=== PATIENT | female | born 1930 | race Caucasian/White ===

== ENCOUNTER 2017-07-15 13:56 | Observation (INO) ==
[2017-07-15] MEDS ORDERED: Aspirin 81 MG TAB.CHEW PO ONE (14:01)
--- NOTE | 2017-07-15 14:22 | Emergency Department Note ---
Disposition Clinical Impression: Unstable angina Chest pain Qualifiers: Chest pain type: unspecified Qualified Code(s): R07.9 - Chest pain, unspecified Disposition: Admitted As Inpatient Condition: Good Time of Disposition: 16:02 Chest Pain HPI - General Chief Complaint: ED Chest Pain Stated Complaint: chest pain Time Seen by Provider: 07/15/17 13:58 Source: patient, EMS Limitations: no limitations Vital Signs Reviewed: Yes Nursing Notes Reviewed: Yes - History of Present Illness HPI Narrative: Patient's an 87-year-old female complains of chest pain 2 days of her angina equivalent. Patient's history of ME 2. Patient states pains with substernal radiation to left-sided neck and left arm which seems to pain she had her last ME. Patient states intensity is not as bad. Patient pain 9/10 and ended one hour prior to arrival. Patient states she is currently pain-free. EMS states patient took 2 nitroglycerin at home. Patient has seen Dr. Odell in the past patient states she has not had any recent cardiac workup. Severity scale (1-10): 0 - Related Data Home Medications Medication Instructions Recorded Confirmed Acetaminophen/Diphenhydramine 0.5 each PO HS PRN 07/15/17 07/15/17 [Acetaminophen Pm Caplet] Aspirin 325 mg PO DAILY 07/15/17 07/15/17 Cholecalciferol (Vitamin D3) 2,000 unit PO DAILY 07/15/17 07/15/17 [Vitamin D] Clopidogrel [Plavix] 75 mg PO DAILY 07/15/17 07/15/17 Isosorbide MONOnitrate (24 HR) 60 mg PO DAILY 07/15/17 07/15/17 [Imdur] Melatonin 5 mg PO HS PRN 07/15/17 07/15/17 Metoprolol [Lopressor] 12.5 mg PO BID 07/15/17 07/15/17 Nitroglycerin 0.4 mg PO Q5M PRN 07/15/17 07/15/17 Potassium Chloride [K-Tab ER] 20 meq PO DAILY 07/15/17 07/15/17 Pravastatin Sodium [Pravachol] 40 mg PO HS 07/15/17 07/15/17 Travoprost [Travatan Z] 1 drop OP HS 07/15/17 07/15/17 amLODIPine [Norvasc] 5 mg PO DAILY 07/15/17 07/15/17 hydroCHLOROthiazide 12.5 mg PO Q48H 07/15/17 07/15/17 [Hydrochlorothiazide] Allergies Allergy/AdvReac Type Severity Reaction Status Date / Time No Known Allergies Allergy Verified 07/15/17 14:49 All systems ED: reviewed and negative except as stated. Review of Systems: As Per HPI Constitutional: Denies: fever, weakness Eyes: Denies: vision change ENT ED: Denies: congestion Cardiovascular: Reports: chest pain, dyspnea on exertion. Denies: palpitations Respiratory: Reports: dyspnea. Denies: cough, wheezes Gastrointestinal: Denies: abdominal pain, nausea, vomiting, diarrhea Genitourinary: Denies: urgency, dysuria, frequency Musculoskeletal: Denies: back pain, neck pain Integumentary: Denies: rash, abrasion Neurological: Denies: headache Psychiatric: Denies: anxiety Endocrine: Denies: fatigue Chest Pain PMH - Past Medical History Medical history: Reports: diabetes, hyperlipidemia, hypertension, myocardial infarction Surgical history: Reports: angioplasty/stent, coronary bypass (CABG) Psychiatric history: Reports: no psych history Prior Cardiac Testing/Procedures: Stenting, CABG - Social History Smoking Status: Never smoker Alcohol use: Reports: none Drug use: Reports: none Physical Exam Vital Signs Temperature 98.0 F 07/15/17 13:57 Pulse Rate 60 07/15/17 13:57 Respiratory Rate 18 07/15/17 13:57 Blood Pressure 192/80 07/15/17 13:57 O2 Sat by Pulse Oximetry 90 07/15/17 13:57 Temperature 98.0 F 07/15/17 13:57 Pulse Rate 60 07/15/17 13:57 Respiratory Rate 18 07/15/17 13:57 Blood Pressure 192/80 07/15/17 13:57 O2 Sat by Pulse Oximetry 95 07/15/17 14:01 Oxygen Delivery Oxygen Delivery Nasal Cannula 87-year-old female who is alert and oriented 3 and currently in no acute distress. Patient does not appear toxic at this time. Patient has no conversational dyspnea or diaphoresis. Patient also has no pallor. Vital signs show hypertension 192/80 recheck - General Limitations: no limitations General appearance: alert, in no apparent distress - Head Head exam: atraumatic, normocephalic, normal inspection - Eye Eye exam: Present: normal appearance, PERRL, EOMI - ENT ENT exam: normal exam, normal oropharynx, mucous membranes moist - Neck Neck exam: Present: normal inspection, full ROM, trachea midline. Absent: tenderness - Chest Chest inspection: Present: normal inspection, symmetric chest wall rise - Respiratory Respiratory exam: Present: normal lung sounds bilaterally - Cardiovascular Cardiovascular exam: Present: regular rate, normal rhythm, normal heart sounds - Abdominal Exam Abdominal exam: Present: soft, Non-Tender. Absent: tenderness, distention, guarding, rebound, rigidity - Extremities Exam Extremities exam: Present: normal inspection, full ROM, normal capillary refill. Absent: tenderness, pedal edema - Back Exam Back exam: Present: normal inspection, full ROM. Absent: tenderness, CVA tenderness (R), CVA tenderness (L) - Neurological Exam Neurological exam: Present: alert, oriented X3 Course Vital Signs Temperature 98.0 F 07/15/17 13:57 Pulse Rate 60 07/15/17 13:57 Respiratory Rate 18 07/15/17 13:57 Blood Pressure 192/80 07/15/17 13:57 O2 Sat by Pulse Oximetry 90 07/15/17 13:57 Temperature 98.0 F 07/15/17 13:57 Pulse Rate 57 07/15/17 14:40 Respiratory Rate 20 07/15/17 15:53 Blood Pressure 164/91 07/15/17 15:53 O2 Sat by Pulse Oximetry 95 07/15/17 14:40 Oxygen Delivery Oxygen Delivery Room Air Chest Pain - MDM Narrative Medical decision making narrative: ACS/and stable angina rule out. Also considering diagnoses or PE, CHF, aortic dissection but currently seem less likely at this time during patient's anginal equivalent. Patient currently pain-free. Heart score of 6 No lab abnormalities Urinalysis shows blood and positive leukocyte esterase. Patient started on 1 g of Rocephin for UTI Patient not having any symptoms of dysuria Patient currently not having any pain on reevaluation. Patient be admitted for ACS rule out for repeated troponins and EKGs. Chest x- ray shows no abnormalities, patient received 324 mg of aspirin by mouth. Dr. Marsh the hospitalists has accepted the patient for admission - Lab Data Lab results reviewed: Yes I reviewed the patient's lab results. Lab results narrative: Short CBC 07/15/17 Range/Units 14:17 WBC 9.0 (4.3-11.1) K/mcL Hgb 14.6 (11.5-15.4) g/dL Hct 43.8 (35.3-44.9) % Plt Count 254 (140-400) K/mcL Neutrophils # 5.4 (1.6-8.9) K/mcL BMP 07/15/17 Range/Units 14:17 Sodium 142 (136-145) mEq/L Potassium 3.6 (3.5-4.5) mEq/L Chloride 105 (98-109) mEq/L Carbon Dioxide 32 H (19-29) mEq/L BUN 14 (7-20) mg/dL Creatinine 0.94 (0.57-1.11) mg/dL Glucose 102 H (70-99) mg/dL Calcium 9.6 (8.6-10.8) mg/dL Cardiac Enzymes 07/15/17 Range/Units 14:17 Troponin I 0.01 (0-0.03) ng/mL Urine 07/15/17 Range/Units 14:32 Urine Color Yellow (Yellow) Urine Clarity Cloudy A (Clear) Urine pH 6.5 (5.0-8.0) pH Units Ur Specific [place] 1.020 (1.010-1.025) Urine Protein Trace (Neg-Trace) mg/dL Urine Glucose (UA) Normal (Normal) mg/dL Result diagrams: 07/15/17 14:17 07/15/17 14:17 Lab Results 07/15/17 07/15/17 07/15/17 Range/Units 14:17 14:17 14:17 WBC 9.0 (4.3-11.1) K/mcL RBC 4.45 (3.82-4.97) M/mcL Hgb 14.6 (11.5-15.4) g/dL Hct 43.8 (35.3-44.9) % MCV 98.4 (83.0-100.0) fL MCH 32.8 (28.0-33.3) pg MCHC 33.3 (31.6-35.5) g/dL RDW 12.7 (11.5-14.5) % Plt Count 254 (140-400) K/mcL MPV 12.0 (9.4-12.4) fL Immature Gran % 0.3 (0-4) % Seg Neutrophils % 60.1 % Lymphocytes % 28.8 % Monocytes % 7.9 % Eosinophils % 2.5 % Basophils % 0.4 % Neutrophils # 5.4 (1.6-8.9) K/mcL Lymphocytes # 2.6 (0.6-4.6) K/mcL Monocytes # 0.7 (0.0-1.3) K/mcL Eosinophils # 0.2 (0.0-0.6) K/mcL Basophils # 0.0 (0.0-0.2) K/mcL Sodium 142 (136-145) mEq/L Potassium 3.6 (3.5-4.5) mEq/L Chloride 105 (98-109) mEq/L Carbon Dioxide 32 H (19-29) mEq/L BUN 14 (7-20) mg/dL Creatinine 0.94 (0.57-1.11) mg/dL Est GFR ( Amer) > 60 (> 60) Est GFR (Non-Af Amer) 56 L (> 60) BUN/Creatinine Ratio 15 (6-26) Glucose 102 H (70-99) mg/dL Calculated Osmolality 295 (280-300) Calcium 9.6 (8.6-10.8) mg/dL Troponin I 0.01 (0-0.03) ng/mL Urine Color (Yellow) Urine Clarity (Clear) Urine pH (5.0-8.0) pH Units Ur Specific [place] (1.010-1.025) Urine Protein (Neg-Trace) mg/dL Urine Glucose (UA) (Normal) mg/dL Urine Ketones (Negative) mg/dL Urine Blood (Negative) Urine Nitrite (Negative) Urine Bilirubin (Negative) Urine Urobilinogen (Normal) mg/dL Ur Leukocyte Esterase (Negative) Urine Microscopic RBC (0-3) per hpf Urine Microscopic WBC (0-3) per hpf Ur Squamous Epith Cells (None-Few) per lpf Calcium Oxalate Crystal Urine Bacteria (None-Few) per hpf Hyaline Casts (None-Few) per lpf Ur Culture Indicated? (NO) 07/15/17 Range/Units 14:32 WBC (4.3-11.1) K/mcL RBC (3.82-4.97) M/mcL Hgb (11.5-15.4) g/dL Hct (35.3-44.9) % MCV (83.0-100.0) fL MCH (28.0-33.3) pg MCHC (31.6-35.5) g/dL RDW (11.5-14.5) % Plt Count (140-400) K/mcL MPV (9.4-12.4) fL Immature Gran % (0-4) % Seg Neutrophils % % Lymphocytes % % Monocytes % % Eosinophils % % Basophils % % Neutrophils # (1.6-8.9) K/mcL Lymphocytes # (0.6-4.6) K/mcL Monocytes # (0.0-1.3) K/mcL Eosinophils # (0.0-0.6) K/mcL Basophils # (0.0-0.2) K/mcL Sodium (136-145) mEq/L Potassium (3.5-4.5) mEq/L Chloride (98-109) mEq/L Carbon Dioxide (19-29) mEq/L BUN (7-20) mg/dL Creatinine (0.57-1.11) mg/dL Est GFR ( Amer) (> 60) Est GFR (Non-Af Amer) (> 60) BUN/Creatinine Ratio (6-26) Glucose (70-99) mg/dL Calculated Osmolality (280-300) Calcium (8.6-10.8) mg/dL Troponin I (0-0.03) ng/mL Urine Color Yellow (Yellow) Urine Clarity Cloudy A (Clear) Urine pH 6.5 (5.0-8.0) pH Units Ur Specific [place] 1.020 (1.010-1.025) Urine Protein Trace (Neg-Trace) mg/dL Urine Glucose (UA) Normal (Normal) mg/dL Urine Ketones Negative (Negative) mg/dL Urine Blood Moderate H (Negative) Urine Nitrite Negative (Negative) Urine Bilirubin Negative (Negative) Urine Urobilinogen Normal (Normal) mg/dL Ur Leukocyte Esterase Small H (Negative) Urine Microscopic RBC 0-3 (0-3) per hpf Urine Microscopic WBC 3-5 H (0-3) per hpf Ur Squamous Epith Cells Many H (None-Few) per lpf Calcium Oxalate Crystal Present Urine Bacteria None Seen (None-Few) per hpf Hyaline Casts None Seen (None-Few) per lpf Ur Culture Indicated? YES A (NO) - Radiology Data Radiology results reviewed: Yes I reviewed the patient's radiology results. Chest X-Ray 07/15/17 14:00 IMPRESSION: 1. No active pulmonary disease. D/ / Abhishek Crandall MD / Abhishek Crandall MD Interpreting Provider: Abhishek Crandall MD - EKG Data EKG attestation: Yes I reviewed and interpreted this EKG. EKG results narrative: EKG taken for July 2017 at 1400 hrs. shows a sinus bradycardia. No acute ST elevations or depressions any leads EKG shows mild left ventricular hypertrophy Heart Score - Score History: Moderately Suspicious EKG: Non Specific repolarisation Disturbance Age: Greater than 65 Risk Factors: Equal/Greater than 3 risk factor or history of atherosclerotic disease Troponin: Less than normal limit HEART Score Total: 6 Attestation Statement - Attestation Attestation: I examined this patient and my medical decision-making was reviewed with the Resident Physician. I agree with the documented findings, disposition and treatment plan as described except to the extent set forth below. 87 she will female presents to the ED because of recurrent chest pain. Over the past couple weeks had recurring episodes of substernal chest discomfort which is becoming more frequent and more intense. Mild dyspnea and occasional diaphoresis. She has had similar pain in the past associated with ACS. No fevers or chills. No abdominal pain. No productive cough. Pleasant, elderly female in no apparent distress. Oropharynx clear mucous membranes are moist. Neck is supple. Trachea midline, no JVD. Chest clear to auscultation bilaterally. Extremities without rubs or gallops. Chest wall nontender to palpation. Abdomen soft, nondistended and nontender to palpation. Extremities well- perfused, warm and dry. EKG without any acute abdomen. Initial ED workup was unremarkable. She will be admitted for further workup and evaluation.
[2017-07-15 14:29] LABS: Hematocrit 43.8 % (35.3-44.9); Hemoglobin 14.6 g/dL (11.5-15.4); Immature Granulocytes % 0.3 % (0-4); Lymphocytes % 28.8 %; Mean Corpuscular HGB Conc 33.3 g/dL (31.6-35.5); Mean Corpuscular Hemoglobin 32.8 pg (28.0-33.3); Mean Corpuscular Volume 98.4 fL (83.0-100.0); Monocytes % 7.9 %; Platelet Count 254 K/mcL (140-400); Red Blood Count 4.45 M/mcL (3.82-4.97); Red Cell Distribution Width 12.7 % (11.5-14.5); Segmented Neutrophils % 60.1 %
[2017-07-15 14:30] LABS: Basophils % 0.4 %; Eosinophils # 0.2 K/mcL (0.0-0.6); Eosinophils % 2.5 %; Lymphocytes # 2.6 K/mcL (0.6-4.6); Monocytes # 0.7 K/mcL (0.0-1.3); Neutrophils # 5.4 K/mcL (1.6-8.9)
[2017-07-15 14:39] LABS: BUN/Creatinine Ratio 15 (6-26); Blood Urea Nitrogen 14 mg/dL (7-20); Calcium 9.6 mg/dL (8.6-10.8); Carbon Dioxide 32 mEq/L (19-29); Chloride 105 mEq/L (98-109); Glucose 102 mg/dL (70-99); Osmolality,Calculated 295 (280-300); Potassium 3.6 mEq/L (3.5-4.5); Sodium 142 mEq/L (136-145); eGFR For African Americans > 60 (> 60); eGFR For Non-African Americans 56 (> 60)
[2017-07-15 14:46] LABS: Bilirubin,Urine Negative (Negative); Blood,Urine Moderate (Negative); Clarity,Urine Cloudy (Clear); Color,Urine Yellow (Yellow); Glucose,Urine (UA) Normal (Normal); Ketones,Urine Negative (Negative); Leukocyte Esterase,Urine Small (Negative); Nitrite,Urine Negative (Negative); PH,Urine 6.5 pH Units (5.0-8.0); Protein,Urine Trace mg/dL (Neg-Trace); Urobilinogen,Urine Normal (Normal)
[2017-07-15 14:47] LABS: Bacteria,Urine None Seen per hpf (None-Few); Hyaline Casts,Urine None Seen per lpf (None-Few); RBC,Urine 0-3 per hpf (0-3); Squamous Epithelial Cell,Urine Many per lpf (None-Few)
[2017-07-15 14:56] LABS: Calcium Oxalate Crystals,Urine Present
[2017-07-15] MEDS ORDERED: cefTRIAXone 1,000 MG in Water for inj. (sterile) 10 ML IVP ONE (15:59)
[2017-07-15] MEDS ORDERED: ACETAMINOPHEN PM PO PRN (21:19)
[2017-07-15] MEDS ORDERED: Melatonin 3 MG TABLET PO PRN (21:19)
[2017-07-15] MEDS ORDERED: Nitroglycerin 0.4 MG TAB.SUBL SL PRN (21:19)
[2017-07-15] MEDS ORDERED: Dextrose Gel 15 GM PO PRN ×2 (21:21)
[2017-07-15] MEDS ORDERED: *HR* Morphine 2 MG/ML SYRINGE IVP PRN (21:21)
[2017-07-15] MEDS ORDERED: D5% in Water 1,000 ML IVC PRN (21:21)
[2017-07-15] MEDS ORDERED: *HR* Dextrose 50 % in Water (Syg) 50 ML SYRINGE IVP PRN (21:21)
[2017-07-15] MEDS ORDERED: Naloxone 0.4 MG/ML INJ IVP PRN (21:21)
--- NOTE | 2017-07-15 21:26 | Internal Med History&Physical ---
<Konrad Kennedy J - Last Filed: 07/15/17 21:24> Date of Encounter: 07/15/17 Time of Encounter: 21:24 Assessment and Plan (1) Unstable angina Current visit: Yes Status: Acute Chest pain began approximately 2 days ago, improved with 2 sublingual nitroglycerin tablets she is currently not having any chest pain at this time but Continues to have intermittent chest discomfort. Chest discomfort is describedas substernal without radiation and nonexertional. She has an extensive cardiac history including DC 2, and CABG. Reports that everybody in her family of heart attacks at young age. Initial troponin negative at 0.01. She has not had any recent cardiac workup. Consult cardiology for further recommendations, I feel due to her history and current presentation she may need a left heart cath Continue to trend troponin PRN Morphine and nitro for chest pain NPO after midnight continuous tele, continuous spo2 Continue aspirin, statin and Plavix Echocardiogram (2) UTI (urinary tract infection) Current visit: Yes Status: Acute Urinalysis reveals cloudy urine with moderate blood and small leukocyte esterase. She denies any abdominal pain, severe pain, dysuria, urinary urgency or frequency. However we will continue to treat as UTI this time, ceftriaxone 1 g daily Qualifiers: Urinary tract infection type: acute cystitis Hematuria presence: with hematuria Qualified Code(s): N30.01 - Acute cystitis with hematuria (3) Diabetes Current visit: Yes Status: Acute Start low-dose sliding scale insulin coverage, before meals and at bedtime Accu- Cheks, diabetic diet for now. Nothing by mouth after midnight until cardio sees Qualifiers: Diabetes mellitus type: type 2 Diabetes mellitus complication status: without complication Diabetes mellitus prison insulin use: without manager payment use Qualified Code(s): E11.9 - Type 2 diabetes mellitus without complications (4) HTN (hypertension) Current visit: Yes Status: Acute History of hypertension, blood pressure waxing and waning. His BP anywhere from 190s to 160s today. Continue Norvasc, metoprolol and isosorbide. Start Hydralazine 10 mg IV push recipe sustained greater than 160 Qualifiers: Hypertension type: essential hypertension Qualified Code(s): I10 - Essential (primary) hypertension (5) DVT prophylaxis Current visit: Yes Status: Acute Heparin 5000 units subcutaneous twice a day Internal Medicine - H&P: HPI Chief complaint: Chest pain Admitted From: Home Plans for Post Hospital Care: Home History of present illness: Ms. Connor is a 87 year old female with a PMH of DC 2, DM, HLD, hypertension and CABG. She presents today with 2 day history of substernal chest pain/ pressure without radiation and nonexertional rated as 9/10 before arrival. Upon arrival chest pain has subsided, she reports taking 2 SL nitroglycerin tablets with improvement. Admits to fatigue and chest discomfort last 2 days, denies fever, chills, nausea, vomiting, diaphoresis, shortness of breath. Multiple risk factors including prior DC, diabetes, and she will T and CABG. Troponin negative as were 0.01. Additionally has noted she has her urinalysis is cloudy with leukocyte esterase present. Denies any abdominal pain, dysuria, frequency or urgency. Past Med Surg Social Fam HX - Past Medical History Medical history: diabetes, hyperlipidemia, hypertension, myocardial infarction Psychiatric history: no psych history - Past Surgical History Surgical History: angioplasty/stent, coronary bypass (CABG) - Social History Smoking Status: Never smoker Smokeless Tobacco Status: No Alcohol use: none Drug use: none - Family History Father Living Status: Age at : 40 Hx Family Cardiac Disorders: Yes Internal Medicine - H&P: Meds Acetaminophen/Diphenhydramine [Acetaminophen Pm Caplet] 0.5 each PO HS PRN 07/15 [History] Aspirin 325 mg PO DAILY 07/15/17 [History] Cholecalciferol (Vitamin D3) [Vitamin D] 2,000 unit PO DAILY 07/15/17 [History] Clopidogrel [Plavix] 75 mg PO DAILY 07/15/17 [History] Isosorbide MONOnitrate (24 HR) [Imdur] 60 mg PO DAILY 07/15/17 [History] Melatonin 5 mg PO HS PRN 07/15/17 [History] Metoprolol [Lopressor] 12.5 mg PO BID 07/15/17 [History] Nitroglycerin 0.4 mg PO Q5M PRN 07/15/17 [History] Potassium Chloride [K-Tab ER] 20 meq PO DAILY 07/15/17 [History] Pravastatin Sodium [Pravachol] 40 mg PO HS 07/15/17 [History] Travoprost [Travatan Z] 1 drop OP HS 07/15/17 [History] amLODIPine [Norvasc] 5 mg PO DAILY 07/15/17 [History] hydroCHLOROthiazide [Hydrochlorothiazide] 12.5 mg PO Q48H 07/15/17 [History] 3 Allergy/AdvReac Type Severity Reaction Status Date / Time No Known Allergies Allergy Verified 07/15/17 14:49 All Systems PM: A 10-system review of systems was performed and is negative for pertinent findings except as documented above in the HPI. - Constitutional Constitutional: no chills, no fever(s), no night sweats - EENT Eyes: no change in vision, no discharge, no pain, no photophobia Ears: no ear discharge, no ear pain, no tinnitus Nose, mouth and throat: no dysphagia, no nasal discharge, no neck pain, no sore throat - Cardiovascular Cardiovascular ROS IM: chest pain, no diaphoresis, no dyspnea, no edema, no irregular heart rhythm, no lightheadedness, no orthopnea, no palpitations, no paroxysmal nocturnal dyspnea, no syncope - Respiratory Respiratory: no cough, no dyspnea, no wheezing, no excessive phlegm production - Gastrointestinal Gastrointestinal: no abdominal pain, no diarrhea, no hematemesis, no hematochezia, no melena, no nausea, no vomiting - Genitourinary Genitourinary: no change in urinary stream, no dysuria, no flank pain, no hematuria - Musculoskeletal Musculoskeletal ROS IM: no numbness, no tingling - Integumentary Integumentary IM: no rash, no unusual bruising - Neurological Neurological ROS: no confusion, no convulsions, no focal weakness, no numbness, no tingling, no tremor(s) - Hematologic/Lymphatic Hematologic/Lymphatic: no easy bruising - Constitutional Vitals: Temp Pulse Resp BP Pulse Ox 98.2 F 64 15 165/67 93 07/15/17 18:52 07/15/17 18:52 07/15/17 18:52 07/15/17 18:52 07/15/17 18:52 General appearance: Present: cooperative, A&O X 3, no acute distress, answers questions appropriately - Head Head exam: Present: atraumatic, normocephalic - Eye Eye exam: Present: PERRL, conjuntiva pink, sclera anicteric Pupils: Present: PERRL - Neck Neck exam general surgery: Present: supple, trachea midline. Absent: lymphadenopathy - Respiratory Respiratory exam: Present: CTAB. Absent: accessory muscle use, rales, rhonchi, wheezes - Cardiovascular Cardiovascular exam: Present: RRR, +S1, +S2. Absent: diastolic murmur, gallop, rubs, systolic murmur - GI/Abdominal GI/Abdominal exam: Present: normal bowel sounds, soft, no peritoneal signs. Absent: distended, tenderness - Extremities Exam Extremities exam: Present: warm, radial pulses palpable and symmetrical. Absent : calf tenderness, cyanotic, pedal edema - Neurological Exam Neurological exam: Present: CN II-XII intact, oriented X3, no focal deficits. Absent: pronater drift, facial droop, speech deficit - Skin Skin exam: Present: dry, intact Internal Med - H&P Results - Labs CBC & Chem 7: 07/15/17 14:17 07/15/17 14:17 - EKG Data -: EKG Interpreted by Myself EKG shows normal: sinus rhythm Rate: bradycardia - EKG Data Prior EKG available for review: yes When compared to previous EKG: there is no significant change - Diagnostic Studies Chest x-ray Status: image reviewed by me Additional comments: No acute pulmonary process <Gregory Zavala - Last Filed: 07/16/17 02:30> Date of Encounter: 07/15/17 Time of Encounter: 23:05 - Constitutional Vitals: Temp Pulse Resp BP Pulse Ox 98.4 F 68 16 171/68 93 07/15/17 23:23 07/15/17 23:23 07/15/17 23:23 07/15/17 23:23 07/15/17 23:23 General appearance: Present: A&O X 3, no acute distress - Eye Eye exam: Present: PERRL. Absent: scleral icterus - Neck Neck exam general surgery: Present: supple. Absent: tenderness - Expanded Neck Exam Neck exam: Absent: carotid bruit - Respiratory Respiratory exam: Present: CTAB. Absent: rales, rhonchi, wheezes - Cardiovascular Cardiovascular exam: Present: RRR, +S1, +S2. Absent: diastolic murmur, systolic murmur - GI/Abdominal GI/Abdominal exam: Present: soft. Absent: tenderness Internal Med - H&P Results - Labs CBC & Chem 7: 07/15/17 14:17 07/15/17 14:17 Labs: Cardiac Enzymes 07/15/17 Range/Units 21:50 Troponin I 0.02 (0-0.03) ng/mL - EKG Data -: EKG Interpreted by Myself - EKG Data EKG comments: 07/16/17 02:26 Sinus bradycardia; no acute ST-T changes - Diagnostic Studies Chest x-ray Status: image reviewed by me (negative) - Attending Attestation I discussed the patient MODOC, PMH, ROS, lab data, and exam findings with Konrad Kennedy CNP. I then saw and examined patient independently as well. Patient gives a concerning history for angina with chest tightness and dyspnea, especially with exertion. Today she had CP relieved by 2 SL NTG. Currently, she is chest pain free. She has known CAD and will need cardiology consultation with possible LHC. However, I'll defer that to cardiology. Other than my comments above and noted exam findings, I agree with Konrad's assessment and plan.
[2017-07-15] MEDS ORDERED: hydroCHLOROthiazide 25 MG TABLET PO SCH (21:30)
[2017-07-16 04:06] LABS: Basophils # 0.1 K/mcL (0.0-0.2); Basophils % 0.6 %; Eosinophils # 0.3 K/mcL (0.0-0.6); Eosinophils % 2.8 %; Hematocrit 43.5 % (35.3-44.9); Hemoglobin 14.7 g/dL (11.5-15.4); Immature Granulocytes % 0.2 % (0-4); Lymphocytes % 32.7 %; Mean Corpuscular HGB Conc 33.8 g/dL (31.6-35.5); Mean Corpuscular Hemoglobin 32.8 pg (28.0-33.3); Mean Corpuscular Volume 97.1 fL (83.0-100.0); Monocytes # 0.7 K/mcL (0.0-1.3); Monocytes % 7.5 %; Neutrophils # 5.1 K/mcL (1.6-8.9); Platelet Count 247 K/mcL (140-400); Red Blood Count 4.48 M/mcL (3.82-4.97); Red Cell Distribution Width 12.7 % (11.5-14.5); Segmented Neutrophils % 56.2 %
[2017-07-16 04:13] LABS: BUN/Creatinine Ratio 15 (6-26); Blood Urea Nitrogen 12 mg/dL (7-20); Calcium 9.3 mg/dL (8.6-10.8); Carbon Dioxide 26 mEq/L (19-29); Chloride 104 mEq/L (98-109); Glucose 87 mg/dL (70-99); Osmolality,Calculated 295 (280-300); Sodium 143 mEq/L (136-145); eGFR For African Americans > 60 (> 60); eGFR For Non-African Americans > 60 (> 60)
[2017-07-16] MEDS: *HR* Heparin 5,000 UNIT/ML VIAL SQ SCH ×2 (05:38→18:39)
[2017-07-16] MEDS ORDERED: Isosorbide MONOnitrate (24 HR) 60 MG TAB.ER.24H PO SCH (09:00)
[2017-07-16] MEDS ORDERED: cefTRIAXone 1,000 MG in Water for inj. (sterile) 10 ML IVP SCH (09:00)
[2017-07-16] MEDS: Aspirin 325 MG TABLET PO SCH (10:26)
[2017-07-16] MEDS: Cholecalciferol (D-3) 1,000 UNIT TABLET PO SCH (10:26)
[2017-07-16] MEDS: Insulin LISPRO 300 UNITS/3 ML VIAL SQ SCH ×2 (10:39→12:41)
[2017-07-16] MEDS: amLODIPine 5 MG TABLET PO SCH ×2 (10:41→11:49)
--- NOTE | 2017-07-16 12:12 | Cardiology Consult Note ---
<Alan Pugh - Last Filed: 07/16/17 12:10> Date of Encounter: 07/16/17 Time of Encounter: 11:50 Assessment and Plan (1) Chest pain Current Visit: Yes Status: Acute Chest pain is reproducible. C/o pain with echocardiogram probe. Troponin negative x3. EKG with no acute finding. TTE shows EF 60-65%. EF improved from 2014, was 40-45%. No significant valvular disfunction. Last [facility] in 2013 showed patent 2/2 bypass grafts. I discussed stress test vs. medical management. She prefers medical management. Increase imdur as tolerated and add Ranexa. We will coordinate out-pt cardiology f/u in 2-3 weeks. Qualifiers: Chest pain type: intercostal pain Qualified Code(s): R07.82 - Intercostal pain (2) CAD (coronary artery disease) Current Visit: Yes Status: Acute H/o 2V CABG. Last LHC in 2013 showed 2/2 patent bypass grafts. 40% stenosis in the distal LEWIS graft. SVG to RPDA is patent. There was a 60% mid circumflex stenosis. Continue asa, statin, and bb. Qualifiers: Coronary Disease-Associated Artery/Lesion type: bypass graft [place] vs. transplanted heart: [place] heart Associated angina: with other forms of angina Qualified Code(s): I25.708 - Atherosclerosis of coronary artery bypass graft(s), unspecified, with other forms of angina pectoris Discussion w patient/family: The assessment and plan as outlined above was discussed with the patient and/or family members who expressed understanding and agreement. All questions were answered. Thank you for involving us in the care of your patient. Please call with any questions. History of Present Illness Consult date: 07/16/17 Requesting physician: Sherie Hughes Consult reason: Chest pain Chief complaint: Chest pain History of present illness: Ms. Connor is a 87 year old female with a history of 2V CABG, HTN, HLD, and DM type II who presented with chest pain starting two days ago. She c/o left sided chest pressure occuring at rest. Her pain improved with SL NTG and baby ASA. She denies associated symptoms. Denies SOB or palpitations. Denies orthopnea, PND, or edema. Currently continues to have left chest pressure. Cardiac work-up included troponin that are negative x3. EKG shows SR with no acute ST changes. Last [facility] in 2013 showed patent bypass grafts. She is a DNRCCA. She does not want any invasive procedures. Cardiology consulted for medical management recommendations. Past Med Surg Social Fam HX - Past Medical History Medical history: diabetes, hyperlipidemia, hypertension, myocardial infarction Psychiatric history: no psych history - Past Surgical History Surgical History: angioplasty/stent, coronary bypass (CABG) - Social History Smoking Status: Never smoker Smokeless Tobacco Status: No Alcohol use: none Drug use: none - Family History Father Living Status: Age at : 40 Hx Family Cardiac Disorders: Yes Medications and Allergies Acetaminophen/Diphenhydramine [Acetaminophen Pm Caplet] 0.5 each PO HS PRN 07/15 [History] Aspirin 325 mg PO DAILY 07/15/17 [History] Cholecalciferol (Vitamin D3) [Vitamin D] 2,000 unit PO DAILY 07/15/17 [History] Clopidogrel [Plavix] 75 mg PO DAILY 07/15/17 [History] Isosorbide MONOnitrate (24 HR) [Imdur] 60 mg PO DAILY 07/15/17 [History] Melatonin 5 mg PO HS PRN 07/15/17 [History] Metoprolol [Lopressor] 12.5 mg PO BID 07/15/17 [History] Nitroglycerin 0.4 mg PO Q5M PRN 07/15/17 [History] Potassium Chloride [K-Tab ER] 20 meq PO DAILY 07/15/17 [History] Pravastatin Sodium [Pravachol] 40 mg PO HS 07/15/17 [History] Travoprost [Travatan Z] 1 drop OP HS 07/15/17 [History] amLODIPine [Norvasc] 5 mg PO DAILY 07/15/17 [History] hydroCHLOROthiazide [Hydrochlorothiazide] 12.5 mg PO Q48H 07/15/17 [History] 3 Allergy/AdvReac Type Severity Reaction Status Date / Time No Known Allergies Allergy Verified 07/15/17 14:49 All Systems Review: A 10-system review of systems was performed and is negative for pertinent findings except as documented above in the HPI. Physical Examination Vital Signs, Last 4 Hours Temp Pulse Resp BP Pulse Ox 07/16/17 11:21 98.7 F 75 14 176/69 94 General: Conversant, No Apparent Distress, Other (Frail elderly female) HEENT: Atraumatic, Normocephaly, Mucus Membranes Moist Neck: No JVD, Normal carotid pulses Cardiac: Reg Rate and Rhythm, Normal S1 and S2, No Murmur Lungs: Normal Breath Sounds, No Wheeze, Rales, Rhonchi Neuro: Alert and responsive, No focal deficits noted Abdomen: Soft, Non-Tender Skin: No rashes noted on visualized skin Musculoskeletal: Other (Reproducible chest wall pain) Extremities: No Clubbing, No Cyanosis, No Edema, Normal Pulses Results 07/16/17 03:27 07/16/17 03:27 Lab Results 07/15/17 07/16/17 07/16/17 21:50 03:27 03:27 WBC 9.1 Hgb 14.7 Hct 43.5 Plt Count 247 Sodium Potassium Chloride Carbon Dioxide BUN Creatinine Glucose Calcium Troponin I 0.02 0.02 07/16/17 07/16/17 03:27 10:48 WBC Hgb Hct Plt Count Sodium 143 Potassium 3.0 L Chloride 104 Carbon Dioxide 26 BUN 12 Creatinine 0.80 Glucose 87 Calcium 9.3 Troponin I 0.02 - Imaging and Cardiology Echo: report reviewed Cardiac cath: report reviewed - EKG Interpretation EKG results cardiology: personally reviewed Consult Discharge Plan - Plan Referrals: Daron Maria DO [Primary Care Provider] - 07/23/17 11:30 am <Anna Marie Conde - Last Filed: 07/16/17 13:20> Date of Encounter: 07/16/17 - Attending Attestation I have personally performed a face to face evaluation on this patient. I have reviewed and agree with the care plan. History and Exam by me shows: 87 YOF with h/o CABG and recent [facility] 2013 reveals patent grafts and non obstructive CAD in the CIRC. Atypical CP this admission with EF 65% improved from previous. Negative CE x 3. Patient refuses any cardiac procedures at this time. Agree with imyovani and macy. Assessment and Plan Discussion w patient/family: The assessment and plan as outlined above was discussed with the patient and/or family members who expressed understanding and agreement. All questions were answered. Thank you for involving us in the care of your patient. Please call with any questions. History of Present Illness History of present illness: Ms. Connor is a 87 year old female All Systems Review: A 10-system review of systems was performed and is negative for pertinent findings except as documented above in the HPI. Physical Examination Vital Signs, Last 4 Hours Temp Pulse Resp BP Pulse Ox 07/16/17 11:21 98.7 F 75 14 176/69 94 Results 07/16/17 03:27 07/16/17 03:27 Lab Results 07/15/17 07/16/17 07/16/17 21:50 03:27 03:27 WBC 9.1 Hgb 14.7 Hct 43.5 Plt Count 247 Sodium Potassium Chloride Carbon Dioxide BUN Creatinine Glucose Calcium Troponin I 0.02 0.02 07/16/17 07/16/17 03:27 10:48 WBC Hgb Hct Plt Count Sodium 143 Potassium 3.0 L Chloride 104 Carbon Dioxide 26 BUN 12 Creatinine 0.80 Glucose 87 Calcium 9.3 Troponin I 0.02
[2017-07-16] MEDS: Isosorbide MONOnitrate (24 HR) 30 MG TAB.ER.24H PO SCH (14:07)
[2017-07-16] MEDS: Ranolazine 500 MG TAB.ER.12H PO SCH ×2 (14:07→20:38)
--- NOTE | 2017-07-16 17:15 | Discharge Summary ---
Date of Encounter: 07/16/17 Time of Encounter: 14:50 - Discharge Diagnosis (1) Chest pain Priority: Primary Status: Acute Comments: Patient presented to the emergency department on admission for 2 day history of chest pain. Left-sided chest pressure occurring at rest. It was relieved with sublingual nitroglycerin and baby aspirin. She denies any shortness of breath, palpitations, nausea, vomiting, diaphoresis. She denies any peripheral edema. As of exam this evening,pt has no chest pain. She denies SOB, dizziness, headache, n/v/d. Echo revealed LVEF of 60-65%, asymmetric hypertrophy of the basal septum, mild LVDD, no significant valvular dysfunction. EF has improved since prior report in September,. Pt was evaluated by cardiology today and will be medically managed. She is a DNR /DNI and does not want LHC or treatment. Cardiology increased Imdur and added Ranexa, will monitor pt overnight for side effects and effectiveness. Continue telemetry Treat chest pain with NTG, morphine prn Pt will follow up with cardiology in the clinic. Qualifiers: Chest pain type: intercostal pain Qualified Code(s): R07.82 - Intercostal pain (2) UTI (urinary tract infection) Priority: Secondary Status: Acute Comments: Patient denies any urinary symptoms, this is an incidental finding. Urine in the emergency department was cloudy, moderate amount of blood, small amount leukocyte esterase, no bacteria, culture is indicated and pending. Final urine culture resulted 07/16/17, negative for any significant growth. Rocephin has been stopped. Qualifiers: Urinary tract infection type: acute cystitis Hematuria presence: with hematuria Qualified Code(s): N30.01 - Acute cystitis with hematuria (3) Diabetes Priority: Secondary Status: Chronic Comments: Continue SSI, accuchecks achs, and diabetic diet. 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 Continue home medications. Imdur has been increased and Ranexa has been added. Qualifiers: Coronary Disease-Associated Artery/Lesion type: bypass graft [place] vs. transplanted heart: [place] heart Associated angina: with other forms of angina Qualified Code(s): I25.708 - Atherosclerosis of coronary artery bypass graft(s), unspecified, with other forms of angina pectoris (6) DVT prophylaxis Priority: Secondary Status: Acute Comments: Heparin SQ BID - Discharge Medications Prescriptions: Isosorbide MONOnitrate (24 HR) [Imdur] 90 mg PO DAILY #30 tab.er.24h Ranolazine [Ranexa] 500 mg PO BID #60 tab.er.12h Home Medications: Acetaminophen/Diphenhydramine [Acetaminophen Pm Caplet] 0.5 each PO HS PRN 07/15 [History] Aspirin 325 mg PO DAILY 07/15/17 [History] Cholecalciferol (Vitamin D3) [Vitamin D3] 2,000 unit PO DAILY 07/15/17 [History] Clopidogrel [Plavix] 75 mg PO DAILY 07/15/17 [History] Melatonin 5 mg PO HS PRN 07/15/17 [History] Metoprolol [Lopressor] 12.5 mg PO BID 07/15/17 [History] Nitroglycerin 0.4 mg PO Q5M PRN 07/15/17 [History] Potassium Chloride [K-Tab ER] 20 meq PO DAILY 07/15/17 [History] Pravastatin Sodium [Pravachol] 40 mg PO HS 07/15/17 [History] Travoprost [Travatan Z] 1 drop OP HS 07/15/17 [History] amLODIPine [Norvasc] 5 mg PO DAILY 07/15/17 [History] hydroCHLOROthiazide [Hydrochlorothiazide] 12.5 mg PO Q48H 07/15/17 [History] Isosorbide MONOnitrate (24 HR) [Imdur] 90 mg PO DAILY #30 tab.er.24h 07/16/17 [ Rx] Ranolazine [Ranexa] 500 mg PO BID #60 tab.er.12h 07/16/17 [Rx] Allergies/Adverse Reactions: 3 Allergy/AdvReac Type Severity Reaction Status Date / Time No Known Allergies Allergy Verified 07/15/17 14:49 Procedures/tests Complete & Pending: Procedures Performed prior 72 hours Category Date Time Status EV echocardiogram Routine Y 07/16/17 21:18 Completed Date of admission: 07/15/17 15:23 Primary care physician: Daron Maria DO Consults: 07/15/17 21:18 Consult to Cardiology [CONS] Routine Comment: Consulting Provider: Cardiology Pamela Reason for Consult: Substernal CP/pressure; h/o ND , DM, CABG. Further recommendations stress vs C need Call Completed: No Discharging clinician: Sherie Hughes Anticipated date of discharge: 07/16/17 - Patient Status Disposition: Home, Self-Care Condition: Good Functional capacity at discharge: independent ambulation Overall status at discharge: patient is back to baseline - Discharge Instructions Follow Up With: Daron Maria DO [Primary Care Provider] - 07/23/17 11:30 am Additional Instructions: Please follow-up with her primary care provider in the next 7-10 days for recheck. Please follow-up with cardiology as scheduled. Start your new medications tomorrow. Return to the emergency department as needed for any other problems or concerns , or if symptoms return or worsen. Resume your normal home medications and diet as tolerated after discharge. - Diet and Activity Activity: increase activity as tolerated Diet: advance to your usual diet Interval History: Please see assessment and plan for hospital course. Hospital course: Ms. Connor is a 87 year old female - Time Spent with Patient Total time spent providing and/or coordinating discharge services: Less than 30 minutes - Constitutional Vitals: Temp Pulse Resp BP Pulse Ox 97.8 F 90 89 124/73 90 07/16/17 16:30 07/16/17 16:30 07/16/17 16:30 07/16/17 16:30 07/16/17 16:30 General appearance: Present: cooperative, A&O X 3, pleasant, no acute distress, answers questions appropriately. Absent: mild distress - Head Head exam: Present: atraumatic, normal inspection, normocephalic - Eye Eye exam: Present: normal appearance, conjuntiva pink, sclera anicteric - Neck Neck exam general surgery: Present: supple, trachea midline. Absent: lymphadenopathy, tenderness - Respiratory Respiratory exam: Present: CTAB. Absent: accessory muscle use, decreased breath sounds, rales, respiratory distress, rhonchi, wheezes - Cardiovascular Cardiovascular exam: Present: RRR, +S1, +S2. Absent: diastolic murmur, gallop, rubs, systolic murmur - GI/Abdominal GI/Abdominal exam: Present: normal bowel sounds, soft, no peritoneal signs. Absent: distended, hepatomegaly, tenderness - Extremities Exam Extremities exam: Present: normal capillary refill, warm, radial pulses palpable and symmetrical. Absent: calf tenderness, cyanotic, pedal edema, tenderness - Neurological Exam Neurological exam: Present: alert, oriented X3, no focal deficits. Absent: altered, facial droop, speech deficit - Skin Skin exam: Present: dry, intact, normal color, warm. Absent: rash
[2017-07-16] MEDS ORDERED: Latanoprost 2.5 ML BOTTLE BOTH EYES SCH (21:00)
[2017-07-16] MEDS ORDERED: Insulin LISPRO 300 UNITS/3 ML VIAL SQ SCH (21:00)
[2017-07-17] MEDS: *HR* Heparin 5,000 UNIT/ML VIAL SQ SCH (05:51)
[2017-07-17 07:34] VITALS: BP 151/73
[2017-07-17] MEDS: Aspirin 325 MG TABLET PO SCH (09:02)
[2017-07-17] MEDS: Isosorbide MONOnitrate (24 HR) 30 MG TAB.ER.24H PO SCH (09:02)
[2017-07-17] MEDS: amLODIPine 5 MG TABLET PO SCH (09:02)
[2017-07-17] MEDS: Ranolazine 500 MG TAB.ER.12H PO SCH (09:03)
[2017-07-17] MEDS: Cholecalciferol (D-3) 1,000 UNIT TABLET PO SCH (09:03)
--- NOTE | 2017-07-17 10:23 | Internal Med Progress Note ---
Date of Encounter: 07/17/17 Time of Encounter: 09:45 - Assessment and plan (1) Chest pain Current Visit: Yes Status: Acute Assessment and plan: Patient presented to the emergency department on admission for 2 day history of chest pain. Left-sided chest pressure occurring at rest. It was relieved with sublingual nitroglycerin and baby aspirin. She denies any shortness of breath, palpitations, nausea, vomiting, diaphoresis. She denies any peripheral edema. As of exam this morning,pt has no chest pain. She denies SOB, dizziness, headache, n/v/d. She denies palpitations, or chest pressure. Echo revealed LVEF of 60-65%, asymmetric hypertrophy of the basal septum, mild LVDD, no significant valvular dysfunction. EF has improved since prior report in September,. Pt was evaluated by cardiology today and will be medically managed. She is a DNR /DNI and does not want LHC or treatment. Cardiology increased Imdur and added Ranexa. Prescriptions sent to pharmacy. Pt sanam well overnight without obvious side effects. Pt to follow up with cardiology in the clinic. Qualifiers: Chest pain type: intercostal pain Qualified Code(s): R07.82 - Intercostal pain (2) UTI (urinary tract infection) Current Visit: Yes Status: Acute Assessment and plan: Patient denies any urinary symptoms, this is an incidental finding. Urine in the emergency department was cloudy, moderate amount of blood, small amount leukocyte esterase, no bacteria, culture is indicated and pending. Final urine culture resulted 07/16/17, negative for any significant growth. Rocephin has been stopped. Qualifiers: Urinary tract infection type: acute cystitis Hematuria presence: with hematuria Qualified Code(s): N30.01 - Acute cystitis with hematuria (3) Diabetes Current Visit: Yes Status: Chronic Assessment and plan: Continue home medications and accucheck regimen. Maintain diabetic diet at home. Qualifiers: Diabetes mellitus type: type 2 Diabetes mellitus complication status: without complication Diabetes mellitus vermin exterminator insulin use: without jail use Qualified Code(s): E11.9 - Type 2 diabetes mellitus without complications (4) HTN (hypertension) Current Visit: Yes Status: Acute Assessment and plan: Chronic. Well controlled. Continue home medications. Qualifiers: Hypertension type: essential hypertension Qualified Code(s): I10 - Essential (primary) hypertension (5) CAD (coronary artery disease) Current Visit: Yes Status: Chronic Assessment and plan: Chronic. Continue home medications. Imdur has been increased and Ranexa has been added. Pt tolerated medications well. Follow up with cardiology in the office as scheduled. Qualifiers: Coronary Disease-Associated Artery/Lesion type: bypass graft [place] vs. transplanted heart: [place] heart Associated angina: with other forms of angina Qualified Code(s): I25.708 - Atherosclerosis of coronary artery bypass graft(s), unspecified, with other forms of angina pectoris (6) DVT prophylaxis Current Visit: Yes Status: Acute Assessment and plan: Heparin SQ daily BID, pt was also ambulatory. - Time Spent With Patient less than 15 minutes - Subjective Interval history: Pt was seen and examined at bedside at 0945. Daughter at bs. Pt states that she denies chest pain or sob. States that she feels better. Denies chest pain, sob, abd pain, n/v/d. She states that she feels fine and is ready to go home. - Constitutional Vitals: Temp Pulse Resp BP Pulse Ox 98.1 F 69 15 151/73 93 07/17/17 07:31 07/17/17 07:31 07/17/17 07:31 07/17/17 07:31 07/17/17 07:31 General appearance: Present: cooperative, A&O X 3, pleasant, no acute distress, answers questions appropriately. Absent: mild distress - Head Head exam: Present: atraumatic, normal inspection, normocephalic - Eye Eye exam: Present: normal appearance, conjuntiva pink, sclera anicteric - Neck Neck exam general surgery: Present: supple, trachea midline. Absent: lymphadenopathy - Respiratory Respiratory exam: Present: CTAB. Absent: accessory muscle use, chest wall tenderness, decreased breath sounds, rales, rhonchi, wheezes - Cardiovascular Cardiovascular exam: Present: RRR, +S1, +S2. Absent: diastolic murmur, gallop, irregular rhythm, rubs, systolic murmur - GI/Abdominal GI/Abdominal exam: Present: normal bowel sounds, soft. Absent: distended, hepatomegaly, tenderness - Extremities Exam Extremities exam: Present: normal capillary refill, normal inspection, warm, radial pulses palpable and symmetrical. Absent: calf tenderness, cyanotic, pedal edema - Neurological Exam Neurological exam: Present: alert, oriented X3, no focal deficits. Absent: altered, facial droop, speech deficit - Skin Skin exam: Present: dry, intact, normal color, warm. Absent: rash Internal Medicine: Result - Labs CBC & Chem 7: 07/16/17 03:27 07/17/17 07:39 Labs: BMP 07/17/17 07:39 Potassium 3.2 L Cardiac Enzymes 07/16/17 Range/Units 10:48 Troponin I 0.02 (0-0.03) ng/mL - Impressions Impressions Echocardiogram 07/16/17 21:18 Impressions: LVEF 60-65%. Normal LV chamber size and function. Atypical septal motion c/w postoperative septum. Asymmetric hypertrophy of the basal septum. Mild left ventricular diastolic dysfunction. Normal right ventricular structure and function. No evidence of pulmonary hypertension. No significant valvular dysfunction. EF has improved since prior report dated 09/20/2013. Left Ventricular Wall Motion: Rest Echo Findings All wall segments showed normal motion. Findings: Study Quality * Technically adequate exam. ECG Findings * Normal sinus rhythm. Left Ventricle * LVEF 60-65%. * Normal LV chamber size and function. * Atypical septal motion c/w postoperative septum. * Asymmetric hypertrophy of the basal septum. * Mild left ventricular diastolic dysfunction. Right Ventricle * Normal right ventricular structure and function. Left Atrium * Normal left atrial size. Right Atrium * Normal right atrial size. Interatrial Septum * Interatrial septum not well evaluated. Aortic Valve * Aortic valve not well visualized. * No aortic stenosis. * No aortic regurgitation. Mitral Valve * Mild mitral annular calcification. * Trace mitral regurgitation. * No mitral stenosis. Tricuspid Valve * Normal tricuspid valve structure and function. * Trace tricuspid regurgitation. * No evidence of pulmonary hypertension. Pulmonic Valve * Pulmonic valve is not well visualized. * No pulmonic regurgitation. Aorta * Normally sized aortic root. Pericardium * The pericardium appears normal. IVC * Normal IVC dimensions and inspiratory collapse. Pulmonary Artery * Normal visualized portions of the main pulmonary artery. Consult Discharge Plan - Plan Additional Instructions: Please follow-up with her primary care provider in the next 7-10 days for recheck. Please follow-up with cardiology as scheduled. Start your new medications tomorrow. Return to the emergency department as needed for any other problems or concerns , or if symptoms return or worsen. Resume your normal home medications and diet as tolerated after discharge. Referrals: Daron Maria DO [Primary Care Provider] - 07/23/17 11:30 am Prescriptions: Isosorbide MONOnitrate (24 HR) [Imdur] 90 mg PO DAILY #30 tab.er.24h Potassium Chloride [K-Tab ER] 20 meq PO DAILY #30 tablet.er Ranolazine [Ranexa] 500 mg PO BID #60 tab.er.12h
--- NOTE | 2017-07-17 18:28 | Electrocardiograph Report ---
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
== END 2017-07-17 11:25 | disposition home health service (06) ==
LOC: EMEROO 13:56 → 3BNU 13:56
PROVIDERS: ADMIT Internal Medicine; ATTEND Registered Nurse